=== PATIENT | male | born 1995 | race Two or more races ===

== ENCOUNTER 2018-06-27 16:44 | Emergency (ER) | payer OTHER ==
[~2018-06-27] VITALS: Ht 175.3 cm; Wt 68.0 kg
--- NOTE | 2018-06-27 17:42 | NUR ---
Patient discharged to home in stable conditon. Written and verbal after care instructions given. Patient verbalizes understanding of instructions.
[2018-06-27 17:44] VITALS: BP 122/64
== END 2018-06-27 17:45 | disposition home or self-care (01) ==
LOC: ER 16:47
DX: S83.91XA Sprain of unspecified site of right knee, initial encounter (principal); F12.10 Cannabis abuse, uncomplicated; Z88.0 Allergy status to penicillin; X50.0XXA Overexertion from strenuous movement or load, initial encounter; Y92.89 Other specified places as the place of occurrence of the external cause; Y93.89 Activity, other specified; Y99.8 Other external cause status
CPT/HCPCS: A4663